=== PATIENT | female | born 1960 | race Caucasian/White ===

== ENCOUNTER 2024-12-06 16:13 | Emergency (ER) | payer OTHER ==
[~2024-12-06] VITALS: Ht 152 cm; Wt 73.5 kg
[~2024-12-06 16:13] MED LIST: FLOMAX0.4 MG PO; NORCO 325 MG-51 TAB PO; SYNTHROID0.125 MG PO; VICO75300 PO
[2024-12-06] MEDS ORDERED: PRAVASTATIN SOD20 MG PO (16:28)
[2024-12-06] MEDS ORDERED: ASPIRIN81 M1 PO (16:28)
[2024-12-06] MEDS ORDERED: AMLODIPINE BESYL5 MG PO (16:28)
[2024-12-06] MEDS ORDERED: SODIUM CHLORIDE 0.9% 500 ML IV ONE (16:45)
[2024-12-06 16:55] LABS: HEMATOCRIT 39.7 % (37.0-47.0); MEAN CELL VOLUME 90.6 fl (81.0-99.0); MEAN CORPUSCULAR HGB 29.7 pg (27.0-31.0); MEAN CORPUSCULAR HGB CONC 32.7 g/dl (33.0-37.0); MEAN PLATELET VOLUME 10.1 fl (9.6-12.3); PLATELET COUNT AUTOMATED 214 10*3/uL (130-400); RED BLOOD COUNT 4.38 10*6/uL (4.10-5.10); RED CELL DISTRI WIDTH 13.4 % (0-14.5); WHITE BLOOD COUNT 22.9 10*3/uL (4.8-10.8)
[2024-12-06 16:59] LABS: MANUAL DIFF REFLEX YES
[2024-12-06 17:15] LABS: BASOPHILS 1 % (0-1); PLATELET SUFFICIENCY NORMAL (NORMAL); POTASSIUM 4.3 mmol/L (3.4-5.1); TOTAL CELLS COUNTED 100 #CELLS
[2024-12-06] MEDS ORDERED: diphenhydrAMINE hydrochloride 50 MG/ML VIAL IV ONE (17:30)
[2024-12-06] MEDS ORDERED: Metoclopramide Hydrochloride 10 MG/2 ML VIAL IV ONE (17:30)
[2024-12-06] MEDS ORDERED: REGLAN10 M1 PO (18:19)
== END 2024-12-06 18:29 | disposition home or self-care (01) ==
LOC: ED 16:13
PROVIDERS: Internal Medicine
DX: A08.4 Viral intestinal infection, unspecified (principal); Z20.822 Contact with and (suspected) exposure to COVID-19; R11.2 Nausea with vomiting, unspecified; Z79.82 Long term (current) use of aspirin; Z79.899 Other long term (current) drug therapy

== ENCOUNTER 2025-01-05 10:07 | Inpatient (IN) | payer OTHER, MEDICARE ==
[~2025-01-05] VITALS: Ht 162.5 cm; Wt 73.1 kg
[~2025-01-05 10:07] MED LIST changes: +AMLODIPINE BESYL5 MG PO; +ASPIRIN81 M1 PO; +PRAVASTATIN SOD20 MG PO; +REGLAN10 M1 PO
[2025-01-05] MEDS ORDERED: Metoclopramide Hydrochloride 10 MG/2 ML VIAL IV ONE (10:15)
[2025-01-05] MEDS ORDERED: SODIUM CHLORIDE 0.9% 1,000 ML IV ONE (10:15)
[2025-01-05] MEDS ORDERED: diphenhydrAMINE hydrochloride 50 MG/ML VIAL IV ONE (10:15)
[2025-01-05 10:24] VITALS: BP 140/78
[2025-01-05 10:35] LABS: BASO # 0.1 10*3/uL (0.0-0.1); BASO % 0.3 % (0.0-1.0); EOS # 0.2 10*3/uL (0.0-0.4); EOS % 1.2 % (1.0-4.0); HEMATOCRIT 40.3 % (37.0-47.0); MEAN CELL VOLUME 90.4 fl (81.0-99.0); MEAN CORPUSCULAR HGB 29.4 pg (27.0-31.0); MEAN CORPUSCULAR HGB CONC 32.5 g/dl (33.0-37.0); MONO # 0.9 10*3/uL (0.1-1.0); MONO % 5.6 % (3.0-9.0); NEUT % 77.3 % (47.0-73.0); PLATELET COUNT AUTOMATED 215 10*3/uL (130-400); RED BLOOD COUNT 4.46 10*6/uL (4.10-5.10); RED CELL DISTRI WIDTH 12.6 % (0-14.5); WHITE BLOOD COUNT 15.5 10*3/uL (4.8-10.8)
[2025-01-05 10:56] LABS: ALKALINE PHOSPHATASE 92 U/L (46-116); BUN 17 mg/dl (9-23); CHLORIDE 107 mmol/L (98-107); LIPASE 27 U/L (12-53); POTASSIUM 3.3 mmol/L (3.4-5.1); SGPT/ALT 18 U/L (5-49)
[2025-01-05 13:48] VITALS: BP 131/70
[2025-01-05] MEDS ORDERED: ALPRAZOLAM0.5 M3 PO (13:51)
[2025-01-05 13:52] LABS: BILIRUBIN Negative (Negative); BLOOD Negative (Negative); CLARITY Clear (Clear); COLOR Yellow (Yellow); GLUCOSE Negative (Negative); KETONE Negative (Negative); LEUKO ESTERASE Negative (Negative); NITRITE Negative (Negative); PH 7.5 (4.5-8.0); UROBILINOGEN 0.2 E.U./dl (0.0-1.0)
[2025-01-05 14:04] LABS: EPITHELIAL CELLS 0-2; RBC 0-2 rbc/hpf (0-2)
[2025-01-05 14:05] LABS: BACTERIA TRACE
[2025-01-05] MEDS ORDERED: POTASSIUM CHLORIDE 20 MEQ TAB PO ONE (14:20)
[2025-01-05] MEDS ORDERED: BISACODYL 5 MG TAB PO PRN (14:40)
[2025-01-05] MEDS ORDERED: Ondansetron Hydrochloride 4 MG/2 ML VIAL IV PRN (14:40)
[2025-01-05] MEDS ORDERED: ACETAMINOPHEN 325 MG TAB PO PRN (14:40)
[2025-01-05 18:53] VITALS: BP 149/75
[2025-01-05 19:23] VITALS: BP 114/75
[2025-01-05 21:30] VITALS: BP 155/76
[2025-01-05] MEDS ORDERED: LEVOXYL88 MCG PO (21:31)
[2025-01-06] VITALS: BP 135/74
[2025-01-06 06:31] LABS: BASO % 0.3 % (0.0-1.0); EOS # 0.1 10*3/uL (0.0-0.4); EOS % 0.7 % (1.0-4.0); HEMATOCRIT 37.8 % (37.0-47.0); MEAN CELL VOLUME 90.4 fl (81.0-99.0); MEAN CORPUSCULAR HGB 29.2 pg (27.0-31.0); MEAN CORPUSCULAR HGB CONC 32.3 g/dl (33.0-37.0); MEAN PLATELET VOLUME 10.3 fl (9.6-12.3); MONO % 6.9 % (3.0-9.0); NEUT # 9.7 10*3/uL (2.3-7.9); NEUT % 70.6 % (47.0-73.0); PLATELET COUNT AUTOMATED 182 10*3/uL (130-400); RED BLOOD COUNT 4.18 10*6/uL (4.10-5.10); RED CELL DISTRI WIDTH 13.1 % (0-14.5); WHITE BLOOD COUNT 13.7 10*3/uL (4.8-10.8)
[2025-01-06 07:18] LABS: ALKALINE PHOSPHATASE 78 U/L (46-116); BUN 13 mg/dl (9-23); CHLORIDE 109 mmol/L (98-107); CHOLESTEROL 142 mg/dL (<200); FREE T4 1.31 ng/dl (0.89-1.76); LDL CHOLESTEROL 76 mg/dL (9-159); SGPT/ALT 15 U/L (5-49); TOTAL PROTEIN 6.3 gm/dL (6.0-8.0); TRIGLYCERIDES 71 mg/dl (<150)
[2025-01-06 07:23] LABS: VITAMIN D, 25-HYDROXY 62.5 ng/mL (30-100)
[2025-01-06 07:26] LABS: POTASSIUM 4.4 mmol/L (3.4-5.1)
[2025-01-06] MEDS ORDERED: ALPRAZolam 0.25 MG TAB PO PRN (07:45)
[2025-01-06 08:00] VITALS: BP 153/72
[2025-01-06] MEDS ORDERED: Levothyroxine Sodium 88 MCG TAB PO SCH (08:00)
[2025-01-06] MEDS ORDERED: CYANOCOBALAMIN 500 MCG TAB PO SCH (10:00)
[2025-01-06] MEDS ORDERED: ASPIRIN ENTERIC COATED 81 MG TAB PO SCH (10:00)
[2025-01-06] MEDS ORDERED: amLODIPine besylate 5 MG TAB PO SCH (10:00)
[2025-01-06] MEDS ORDERED: Enoxaparin Sodium 40 MG/0.4 ML SYR SC SCH (10:00)
[2025-01-06] MEDS ORDERED: ATORVASTATIN CALCIUM 10 MG TAB PO SCH (10:00)
[2025-01-06 12:00] VITALS: BP 139/62
[2025-01-06] MEDS ORDERED: PHARMASSURE V500 MCG PO (13:12)
== END 2025-01-06 15:53 | disposition home or self-care (01) | DRG 74 ==
LOC: ED 10:07 → 5E 13:40 → EDHOLD 13:40 → 5E 20:55
PROVIDERS: Internal Medicine; Registered Nurse; ADMIT Student in an Organized Health Care Education/Training Program; ATTEND Student in an Organized Health Care Education/Training Program
DX: G90.89 Other disorders of autonomic nervous system (principal); R26.2 Difficulty in walking, not elsewhere classified; I10 Essential (primary) hypertension; D72.829 Elevated white blood cell count, unspecified; E87.6 Hypokalemia; R10.84 Generalized abdominal pain; E78.5 Hyperlipidemia, unspecified; E03.9 Hypothyroidism, unspecified; E55.9 Vitamin D deficiency, unspecified; E53.8 Deficiency of other specified B group vitamins; Z79.899 Other long term (current) drug therapy; Z90.49 Acquired absence of other specified parts of digestive tract; Z98.51 Tubal ligation status; Z82.49 Family history of ischemic heart disease and other diseases of the circulatory system; Z79.82 Long term (current) use of aspirin